=== PATIENT | male | born 1955 | race Caucasian/White ===

== ENCOUNTER → 2018-02-13 | Outpatient (CLI) | payer BC | LOC: FIMAGING 10:01 | PROVIDERS: ATTEND Internal Medicine Rheumatology | DX: Z13.820 Encounter for screening for osteoporosis (principal); Z51.81 Encounter for therapeutic drug level monitoring ==

== ENCOUNTER → 2019-03-28 | Outpatient (CLI) | payer OTHER, BC | LOC: FIMAGING 08:42 ==